=== PATIENT | female | born 1945 | race Asian ===

== ENCOUNTER → 2016-10-19 | Outpatient (CLI) | payer MEDICARE ==
[~2016-10-19] MED LIST: ALPR0.25 PO; AMLO5TAB2 PO; ASPI-515 PO; CALTRATE 600 PO; CELE100C PO; CHOL200024 PO; HYDR25TA6 PO; IBAN150T PO; KLOR-CON PO; METO-95 PO; OMEP-110 PO; PRAV40TA2 PO; SERT50TA5 PO; TEMA15CA6 PO
== END | disposition home or self-care (01) ==
LOC: CFH 09:56
PROVIDERS: ATTEND Nurse Practitioner Family
DX: Z12.31 Encounter for screening mammogram for malignant neoplasm of breast (principal); M85.88 Other specified disorders of bone density and structure, other site
CPT/HCPCS: 77080; G0202

== ENCOUNTER 2018-03-12 09:36 | Inpatient (IN) | payer MEDICARE ==
[~2018-03-12] VITALS: Ht 154.9 cm; Wt 62.3 kg
[~2018-03-12 09:36] MED LIST changes: -AMLO5TAB2 PO; +AMLO5TAB7 PO
[2018-03-12] MEDS: SODIUM CHLORIDE 0.9% 1,000 ML IV SCH ×2 (10:17→18:17)
[2018-03-12] MEDS ORDERED: PLEASE ENTER HEIGHT AND WEIGHT MC SCH (10:24)
[2018-03-12] MEDS ORDERED: CEFAZOLIN PMX 1GM/50ML 50 ML IVPB ONE (10:30)
[2018-03-12] MEDS ORDERED: DULO30CA2 PO (10:31)
[2018-03-12] MEDS ORDERED: ATOR10TA PO (10:36)
[2018-03-12] MEDS ORDERED: Magnesium PO (10:38)
[2018-03-12] MEDS ORDERED: CALC1CAP8 PO (10:38)
[2018-03-12 11:25] LABS: BASOPHILS # (AUTO) 0.05 x10^3/uL (0-0.1); BASOPHILS % (AUTO) 1 % (0-1); EOSINOPHILS # (AUTO) 0.22 x10^3/uL (0-0.4); EOSINOPHILS % (AUTO) 3 % (1-7); LYMPHOCYTES # (AUTO) 2.85 x10^3/uL (1-3.4); LYMPHOCYTES % (AUTO) 40 % (22-44); MD NO; MEAN CORPUSCULAR HEMOGLOBIN 31.4 pg (27.0-34.8); MEAN CORPUSCULAR HGB CONC 33.9 g/dL (32.4-35.8); MEAN CORPUSCULAR VOLUME 92.6 fL (80-100); MEAN PLATELET VOLUME 8.5 fL (7.4-10.4); MONOCYTES # (AUTO) 0.64 x10^3/uL (0.2-0.8); MONOCYTES % (AUTO) 9 % (2-9); NEUTROPHILS # (AUTO) 3.38 x10^3/uL (1.8-6.8); NEUTROPHILS % (AUTO) 47 % (42-75); PLATELET COUNT 248 x10^3/uL (130-400); RED BLOOD COUNT 4.66 x10^6/uL (3.82-5.3); RED CELL DISTRIBUTION WIDTH 13.4 % (9.6-15.2)
[2018-03-12 11:38] LABS: ALANINE AMINOTRANSFERASE 51 U/L (12-78); ALBUMIN 3.8 g/dL (3.4-5.0); ANION GAP 10 mmol/L (5-15); CALCIUM 9.2 mg/dL (8.5-10.1); CHLORIDE 104 mmol/L (98-107); CREATININE 0.57 mg/dL (0.55-1.02)
[2018-03-12 11:40] LABS: ALKALINE PHOSPHATASE 98 U/L (45-117); BILIRUBIN,TOTAL 1.3 mg/dL (0.2-1.0); TOTAL PROTEIN 8.1 g/dL (6.4-8.2)
[2018-03-12] MEDS ORDERED: FENTANYL PF 100 MCG/2ML ONE (12:05)
[2018-03-12] MEDS ORDERED: LIDOCAINE/PF 1%, 30ML ONE (12:05)
[2018-03-12] MEDS ORDERED: CEFAZOLIN 1,000 MG ONE (12:05)
[2018-03-12] MEDS ORDERED: MIDAZOLAM 1 MG/ML, 5ML ONE (12:05)
[2018-03-12] MEDS ORDERED: CEFAZOLIN PMX 1GM/50ML 50 ML ONE (12:05)
[2018-03-12] MEDS ORDERED: ONDANSETRON 2MG/ML, 2ML ONE (12:29)
[2018-03-12] MEDS ORDERED: ZOLPIDEM 5MG TABLET PO PRN (13:30)
[2018-03-12] MEDS ORDERED: HYDROcodone/APAP 5/325 TABLET PO PRN (13:30)
[2018-03-12] MEDS ORDERED: HOLD MEDICATION MC PRN (13:30)
[2018-03-12 19:52] VITALS: BP 111/66
[2018-03-12] MEDS: CEFAZOLIN PMX 1GM/50ML 50 ML IVPB SCH (19:56)
[2018-03-12] MEDS: POTASSIUM CHLORIDE 20 MEQ TAB.ER.PRT PO SCH (20:01)
[2018-03-12] MEDS: METOPROLOL SUCCINATE 100 MG TAB.ER.24H PO SCH (20:01)
[2018-03-12] MEDS ORDERED: ACETAMINOPHEN 325 MG TABLET PO PRN (21:00)
[2018-03-12] MEDS ORDERED: SODIUM CHLORIDE FLUSH 10ML SYR IVF SCH (21:00)
[2018-03-12] MEDS ORDERED: ATORVASTATIN 10 MG TABLET PO SCH (21:00)
[2018-03-13] MEDS: SODIUM CHLORIDE 0.9% 1,000 ML IV SCH (01:01)
[2018-03-13 01:06] VITALS: BP 116/73
[2018-03-13] MEDS: CEFAZOLIN PMX 1GM/50ML 50 ML IVPB SCH ×2 (03:45→11:11)
[2018-03-13 06:58] VITALS: BP 120/73
[2018-03-13] MEDS: METOPROLOL SUCCINATE 100 MG TAB.ER.24H PO SCH (08:20)
[2018-03-13] MEDS: POTASSIUM CHLORIDE 20 MEQ TAB.ER.PRT PO SCH (08:20)
[2018-03-13] MEDS ORDERED: MAGNESIUM OXIDE 400 MG TABLET PO SCH (09:00)
[2018-03-13] MEDS ORDERED: HYDROCHLOROTHIAZIDE 25 MG TABLET PO SCH (09:00)
[2018-03-13] MEDS ORDERED: AMLODIPINE 5 MG TABLET PO SCH (09:00)
[2018-03-13] MEDS ORDERED: DULOXETINE 30 MG CAPSULE.DR PO SCH (09:00)
[2018-03-13] MEDS ORDERED: CALCIUM/VITAMIN D3 250-125 TABLET PO SCH (09:00)
[2018-03-13] MEDS ORDERED: ASPIRIN 81 MG TABLET EC PO SCH (09:00)
[2018-03-13] MEDS ORDERED: APIX5TAB PO (09:24)
== END 2018-03-13 12:21 | disposition home or self-care (01) | DRG 243 ==
LOC: CACL 09:36 → ORIP 13:18 → 5SO 13:39 → DCLOUNGE 03-13 12:05
PROVIDERS: ADMIT Internal Medicine Cardiovascular Disease; ATTEND Internal Medicine Cardiovascular Disease
PROC: 0JH606Z Insertion of Pacemaker, Dual Chamber into Chest Subcutaneous Tissue and Fascia, Open Approach (ICD-10-PCS; principal; 2018-03-12)
PROC: 02H63JZ Insertion of Pacemaker Lead into Right Atrium, Percutaneous Approach (ICD-10-PCS; 2018-03-12)
PROC: 02HK3JZ Insertion of Pacemaker Lead into Right Ventricle, Percutaneous Approach (ICD-10-PCS; 2018-03-12)
DX: I49.5 Sick sinus syndrome (principal); D68.69 Other thrombophilia; I48.0 Paroxysmal atrial fibrillation; I10 Essential (primary) hypertension; Z88.6 Allergy status to analgesic agent; Z88.5 Allergy status to narcotic agent; Z79.899 Other long term (current) drug therapy
CPT/HCPCS: 33208; 36415; 71045; 71046; 80053; 85025; 93005; 99156; 99157; C1779; C1785; C1892; G0378; J0690; J2250; J2405; J3010; J3490

== ENCOUNTER 2018-03-19 17:08 | Emergency (ER) | payer MEDICARE ==
[~2018-03-19] VITALS: Ht 160 cm; Wt 67.0 kg
[~2018-03-19 17:08] MED LIST changes: +APIX5TAB PO; +ATOR10TA PO; +CALC1CAP8 PO; +DULO30CA2 PO; +Magnesium PO
[2018-03-19 18:37] VITALS: BP 131/65
== END 2018-03-19 18:41 | disposition home or self-care (01) ==
LOC: ED 18:15
DX: M25.561 Pain in right knee (principal); M25.551 Pain in right hip; M54.16 Radiculopathy, lumbar region; I10 Essential (primary) hypertension
CPT/HCPCS: 73502; 93971; 99284; J7512

== ENCOUNTER → 2018-08-26 | Outpatient (CLI) | payer MEDICARE, MEDICAID ==
[~2018-08-26] MED LIST changes: +AMLO-150 PO; -AMLO5TAB7 PO; -IBAN150T PO; +IBAN150T15 PO; +SERT50TA28 PO; -SERT50TA5 PO
== END | disposition home or self-care (01) ==
LOC: CFH 07:24
PROVIDERS: ATTEND Genetic Counselor, MS
DX: R74.8 Abnormal levels of other serum enzymes (principal)
CPT/HCPCS: 76700

== ENCOUNTER → 2020-05-11 | Outpatient (CLI) | payer MEDICARE, MEDICAID ==
[~2020-05-11] MED LIST changes: +REGADENOSON 0.4 MG/5 ML SYRINGE ONE
== END | disposition home or self-care (01) ==
LOC: CFH 06:47
PROVIDERS: ATTEND Internal Medicine Cardiovascular Disease
DX: I08.3 Combined rheumatic disorders of mitral, aortic and tricuspid valves (principal); R94.31 Abnormal electrocardiogram [ECG] [EKG]
CPT/HCPCS: 78452; 93017; 93306; 93356; A9502; J2785